=== PATIENT | male | born 1955 | race Caucasian/White ===

== ENCOUNTER → 2019-06-29 | Outpatient (CLI) | payer OTHER ==
--- NOTE | 2019-06-30 13:42 | EST ---
EXERCISE STRESS DATE OF SERVICE: 06/29/2019 AGE: 64 SEX: Male HT: 73 WT: 217 PROTOCOL: Nima STAGE: III DURATION OF EXERCISE: 7 minutes 45 seconds HEART RATE REST: 92 BLOOD PRESSURE REST: 149/92 MAXIMUM HEART RATE ACHIEVED: 134 MAXIMUM BLOOD PRESSURE: 207/86 85% MPHR: 133 100% MPHR: 156 METS: 9.3 INDICATIONS: Chest pain. CLINICAL INFORMATION: Patient was exercised for a total period of 7 minutes and 45 seconds. The peak heart rate of 134 was achieved. Maximum blood pressure of 207/86 mmHg was noted. Resting EKG shows normal sinus rhythm with normal CO interval and QRS duration and normal ST-T waves. No ST-segment depression suggestive of ischemia was noted. No dysrhythmias are noted. FINAL IMPRESSION: This exercise test is not suggestive of ischemia. Patient's exercise tolerance is normal. The patient did not complain of any chest pain during the test. MMODL / IJN: [id number] /
== END | disposition home or self-care (01) ==
LOC: RADNMMAIN 10:41
PROVIDERS: ATTEND Internal Medicine
DX: R07.9 Chest pain, unspecified (principal)
CPT/HCPCS: 93017

== ENCOUNTER → 2019-09-29 | Outpatient (CLI) | payer OTHER ==
--- NOTE | 2019-09-29 09:33 | XR ---
EXAMINATION TYPE: XR chest 2V DATE OF EXAM: 09/29/2019 COMPARISON: NONE TECHNIQUE: PA and lateral views submitted. HISTORY: Cough FINDINGS: The lungs are clear and there is no pneumothorax, pleural effusion, or focal pneumonia. Biapical pl eural thickening. No overt failure. Hypertrophic and degenerative change of the spine. IMPRESSION: 1. No acute process.
== END | disposition home or self-care (01) ==
LOC: RADXRMAIN 08:47
PROVIDERS: ATTEND Internal Medicine
DX: R05 Cough (principal)
CPT/HCPCS: 71046

== ENCOUNTER → 2020-11-28 | Outpatient (CLI) | payer MEDICARE, OTHER ==
--- NOTE | 2020-11-28 16:17 | XR ---
EXAMINATION TYPE: XR ribs RT DATE OF EXAM: 11/28/2020 COMPARISON: NONE HISTORY: Pain TECHNIQUE: 4 views submitted FINDINGS: There are multiple lateral chronic appearing rib deformity suggestive of remote trauma. No acute displaced rib fracture. IMPRESSION: Findings suggest remote trauma. Symptoms persist consider bone scan. MTDD
--- NOTE | 2020-11-28 16:19 | XR ---
EXAMINATION TYPE: XR chest 2V DATE OF EXAM: 11/28/2020 COMPARISON: 09/29/2019 TECHNIQUE: PA and lateral views submitted. HISTORY: Pain FINDINGS: The lungs are clear and there is no pneumothorax, pleural effusion, or focal pneumonia. Hyperinflati on of the lungs. Prominence the pulmonary artery suggests pulmonary arterial hypertension. The vague density along the lateral margin of the right mid chest which may be pleural-based. No overt failure. Heart size normal. Atherosclerotic change aorta. Hypertrophic and degenerative changes of the spine. IMPRESSION: 1. Poorly for COPD and pulmonary arterial hypertension. 2. Vague oval density along the lateral margin right chest most likely is pleural-based and stable fr om previous prior exam.
== END ==
LOC: RADXRMAIN 15:44
PROVIDERS: ATTEND Internal Medicine
DX: J44.9 Chronic obstructive pulmonary disease, unspecified (principal); I27.21 Secondary pulmonary arterial hypertension
CPT/HCPCS: 71046

== ENCOUNTER → 2020-11-29 | Outpatient (CLI) | payer MEDICARE, OTHER ==
--- NOTE | 2020-11-29 14:32 | XR ---
Left RIBS HISTORY: Left lower rib pain 3 views the left ribs Correlation to chest x-ray 11/28/2020 There is no evident displaced rib fracture. Bone mineralization is maintained. Thoracic spondylosis i s present. Aorta is dense. Left lung is stable. IMPRESSION: No evident fracture, bone scan could be performed for increased sensitivity as indicated.
== END | disposition home or self-care (01) ==
LOC: RADXRMAIN 09:27
PROVIDERS: ATTEND Internal Medicine
DX: R07.81 Pleurodynia (principal)

== ENCOUNTER 2021-08-21 09:52 | Day surgery (SDC) | payer MEDICARE, OTHER ==
[2021-08-14 15:20] VITALS: BMI 29.7
[~2021-08-21 09:52] MED LIST: LACTATED RINGERS 1,000 ML IV SCH
[2021-08-21 10:12] VITALS: TEMP 97.6
[2021-08-21] MEDS ORDERED: LIDOCAINE 1% (10MG/ML) FOR IV START INTRADERMA ONE (10:19)
[2021-08-21] MEDS ORDERED: PROPOFOL 10 MG/ML 20 ML VIAL IV ONE (11:03)
--- NOTE | 2021-08-21 11:07 | P.GSHP ---
History of Present Illness H&P Date: 08/21/21 Chief Complaint: Rectal bleeding 66-year-old male here today for colonoscopy. Patient admits to intermittent episodes of bright blood blood per rectum. Sometimes heavy. Some incomplete evacuation symptoms well. Had a cologuard test that was positive. No prior colonoscopy. No family history. Past Medical History Past Medical History: Cancer, Hypertension Additional Past Medical History / Comment(s): cologuard showed blood in stool, hx melanoma History of Any Multi-Drug Resistant Organisms: None Reported Past Surgical History: Tonsillectomy Additional Past Surgical History / Comment(s): melanoma removed from rt leg and back, jeffery cataracts Past Anesthesia/Blood Transfusion Reactions: No Reported Reaction Smoking Status: Current every day smoker - Past Family History Mother Family Medical History: Cancer Medications and Allergies Home Medications Medication Instructions Recorded Confirmed Type amLODIPine BESYLATE 10 mg PO DAILY 08/15/21 08/15/21 History lisinopriL 40 mg PO DAILY 08/15/21 08/15/21 History Allergies Allergy/AdvReac Type Severity Reaction Status Date / Time codeine Allergy Rash/Hives/upset Verified 08/21/21 10:05 stomach Surgical - Exam Vital Signs Temp Pulse Resp BP Pulse Ox 97.6 F 74 18 118/66 98 08/21/21 10:11 08/21/21 10:11 08/21/21 10:11 08/21/21 10:11 08/21/21 10:11 Physical exam: General: Well-developed, well-nourished HEENT: Normocephalic, sclerae nonicteric Abdomen: Nontender, nondistended Extremities: No edema Neuro: Alert and oriented Assessment and Plan (1) Rectal bleeding Narrative/Plan: Colonoscopy at this time Current Visit: Yes Status: Acute Code(s): K62.5 - HEMORRHAGE OF ANUS AND RECTUM SNOMED Code(s): 30482137
--- NOTE | 2021-08-21 11:33 | P.PCN ---
Date of Procedure: 08/21/21 Procedure(s) Performed: PREOPERATIVE DIAGNOSIS: Blood in stool POSTOPERATIVE DIAGNOSIS: Multiple colonic polyps PROCEDURE: Colonoscopy with snare polypectomy ANESTHESIA: MAC SURGEON: Hunter Gómez M.D. SPECIMENS: Multiple polyps ENDOSCOPIC PROCEDURE: The patient was placed on the endoscopy table in the left decubitus position. The Olympus colonoscope was inserted into the anus and passed under direct visualization to the base of the cecum. The appendiceal orifice was visualized. From that point the scope was slowly withdrawn inspecting all surfaces carefully. There were no neoplastic inflammatory or polypoid lesions throughout the cecum or ascending colon. At the hepatic flexure there were 2 small polyps both removed using the snare with cautery technique. Another polyp was seen in the transverse colon removed in a similar fashion. Descending colon was normal. In the sigmoid colon that were 4 polyps removed in a similar fashion. In the rectum there were 2 additional small polyps removed using the snare with cautery technique. Most of these polyps ranged in size from 3-8 mm. There was no visible diverticulosis. Digital rectal examination was normal. The patient was taken to the recovery room in stable condition per anesthesia guidelines. RECOMMENDATIONS: Await biopsy results. Short-term follow-up colonoscopy 2-3 years will be advised.
[2021-08-21 11:44] VITALS: RESP 16
[2021-08-21 12:11] VITALS: BP 130/73; PULSE 64
== END 2021-08-21 12:26 | disposition home or self-care (01) ==
LOC: ORWHC2ENDO 09:52
PROVIDERS: ATTEND Surgery
DX: D12.3 Benign neoplasm of transverse colon (principal); D12.5 Benign neoplasm of sigmoid colon; K62.5 Hemorrhage of anus and rectum; I10 Essential (primary) hypertension; Z85.820 Personal history of malignant melanoma of skin; Z98.890 Other specified postprocedural states; Z98.42 Cataract extraction status, left eye; Z98.41 Cataract extraction status, right eye; F17.210 Nicotine dependence, cigarettes, uncomplicated; Z80.9 Family history of malignant neoplasm, unspecified; Z79.899 Other long term (current) drug therapy; Z88.5 Allergy status to narcotic agent
CPT/HCPCS: 88305; 45385; J2704

== ENCOUNTER 2023-04-20 19:21 | Emergency (ER) | payer MEDICARE, OTHER ==
[2023-04-20] MEDS ORDERED: HYDROmorphone 1 MG/ML 1 ML SYRINGE IVP STA ×2 (19:54→21:18)
--- NOTE | 2023-04-20 19:58 | ED ---
General Adult HPI - General Chief complaint: Fall Stated complaint: left hip dislocaton Time Seen by Provider: 04/20/23 19:27 Source: patient Mode of arrival: EMS Limitations: physical limitation - History of Present Illness Initial comments: Patient presents to the ED by ambulance for evaluation status post trip and fall. Patient's girlfriend and her mother are at bedside with the patient. Patient states that he acidentally tripped and fell down about 5 steps landing on his left hip. Patient is complaining of severe left hip pain. Patient denie s any other injury or site of pain. Patient denies anticoagulant medication use. Patient denies head injury, LOC, headache, focal numbness/weakness/neuro deficit, neck/back/upper extremity pain, chest pain, dyspnea, palpitations, dizziness, abdominal pain, nausea or vomiting, or any other symptoms or complaints. Patient denies prior left hip surgery. Patient was given pain medication by EMS, which he reports has not helped at all. - Related Data Home Medications Medication Instructions Recorded Confirmed amLODIPine BESYLATE 10 mg PO DAILY 08/15/21 08/15/21 lisinopriL 40 mg PO DAILY 08/15/21 08/15/21 Allergies Allergy/AdvReac Type Severity Reaction Status Date / Time codeine Allergy Rash/Hives/upset Verified 08/21/21 10:05 stomach Review of Systems ROS Statement: Those systems with pertinent positive or pertinent negative responses have been documented in the HPI. ROS Other: All systems not noted in ROS Statement are negative. Past Medical History Past Medical History: Cancer, Hypertension Additional Past Medical History / Comment(s): cologuard showed blood in stool, hx melanoma History of Any Multi-Drug Resistant Organisms: None Reported Past Surgical History: Tonsillectomy Additional Past Surgical History / Comment(s): melanoma removed from rt leg and back, jeffery cataracts Past Anesthesia/Blood Transfusion Reactions: No Reported Reaction Past Psychological History: No Psychological Hx Reported Smoking Status: Current every day smoker - Past Family History Mother Family Medical History: Cancer General Exam Limitations: physical limitation General appearance: alert Head exam: Present: atraumatic, normocephalic Eye exam: Present: normal appearance ENT exam: Present: mucous membranes moist Neck exam: Present: normal inspection, other (Trachea is in midline). Absent: tenderness Respiratory exam: Present: normal lung sounds bilaterally. Absent: respiratory distress, wheezes, rales, rhonchi, stridor, chest wall tenderness Cardiovascular Exam: Present: regular rate, normal rhythm, normal heart sounds, other (Normal dorsalis pedis pulses bilaterally) GI/Abdominal exam: Present: soft. Absent: distended, tenderness, guarding Extremities exam: Present: other (Left lower extremity is shortened and externally rotated at rest; left hip tenderness; pelvis is stable). Absent: pedal edema Back exam: Present: normal inspection. Absent: tenderness Neurological exam: Present: alert, oriented X3. Absent: motor sensory deficit Psychiatric exam: Present: normal affect, normal mood Skin exam: Present: warm, dry, intact, normal color Course Vital Signs 04/20/23 21:56 Temperature 98.8 F Pulse Rate 70 Respiratory 20 Rate Blood Pressure 123/69 O2 Sat by Pulse 94 L Oximetry - Reevaluation(s) Reevaluation #1: 04/20/23 21:46 Case, H&P and x-ray findings were discussed with KAREN Hwang (orthopedic surgery). He states that his attending orthopedic surgeon, Dr. Harris, has revi ewed the patient's x-rays, and he feels that the patient should be transferred to another facility due to the complicated nature of his fracture repair. He has no further recommendations at this time. 04/20/23 22:53 Patient is aware of his test results/trait findings and my discussion with orthopedic surgery as above. Patient agrees with ambulance transfer to [facility] at this time for orthopedic surgery evaluation. 04/20/23 23:17 Case, H&P, test results and ED management thus far were discussed with both Dr. Sow (orthopedic surgery) and Dr. Watts (ED physician) at [facility]. Ambulance transfer to the [facility] ED was accepted by Dr. Watts. He has no further recommendations at this time. EKG Findings - EKG Comments: EKG Findings:: ED physician interpretation (interpreted by me): Normal sinus rhythm, ventricular rate of 61 bpm, no ectopy, normal KS and QRS intervals, normal QT interval, normal axis, no ST or T-wave abnormality Medical Decision Making - Medical Decision Making Was pt. sent in by a medical professional or institution (, [facility], [facility], urgent care, hospital, or jail...) When possible be specific @ No Did you speak to anyone other than the patient for history (EMS, parent, family, police, friend...)? What history was obtained from this source @ -No Did you review nursing and triage notes (agree or disagree)? Why? @ -I reviewed and agree with nursing and triage notes Were old charts reviewed (outside hosp., previous admission, EMS record, old EKG , old radiological studies, urgent care reports/EKG's, jail records)? Report findings @ -No old charts were reviewed Differential Diagnosis (chest pain, altered mental status, abdominal pain women, abdominal pain men, vaginal bleeding, weakness, fever, dyspnea, syncope, headache, dizziness, GI bleed, back pain, seizure, CVA, palpatations, mental health, musculoskeletal)? @ -Fall, fracture, sprain, strain, dislocation, contusion, hematoma EKG interpreted by me (3pts min.). @ -As above X-rays interpreted by me (1pt min.). @ -Chest x-ray was reviewed myself and shows no acute abnormality. I agree with the radiologist's interpretation as above. Left hip x-rays were reviewed myself and show an acute comminuted intratrochanteric hip fracture. I agree with the radiologist's interpretation as above. CT interpreted by me (1pt min.). @ -None done U/S interpreted by me (1pt. min.). @ -None done What testing was considered but not performed or refused? (CT, X-rays, U/S, labs)? Why? @ -None What meds were considered but not given or refused? Why? @ -None Did you discuss the management of the patient with other professionals (professionals i.e. , PA, [facility], lab, RT, psych nurse, mental health social worker, print line tailer, teacher, gunnery/ordnance officer, case consultant)? Give summary @ -As above Was smoking cessation discussed for >3mins.? @ -No Was critical care preformed (if so, how long)? @ -No Were there social determinants of health that impacted care today? How? (Homelessness, low income, unemployed, alcoholism, drug addiction, transportation, low edu. Level, literacy, decrease access to med. care, group home, rehab)? @ -No Was there de-escalation of care discussed even if they declined (Discuss DNR or withdrawal of care, Hospice)? DNR status @ -No What co-morbidities impacted this encounter? (DM, HTN, Smoking, COPD, CAD, Cancer, CVA, ARF, Chemo, Hep., AIDS, mental health diagnosis, sleep apnea, morbid obesity)? @ -None Was patient admitted / discharged? Hospital course, mention meds given and route, prescriptions, significant lab abnormalities, going to OR and other pertinent info. @ -X-rays demonstrated an acute comminuted intertrochanteric left hip fracture. Case was discussed with our orthopedic surgery team, but they feel that given t he complexity of the patient's fracture, the patient should be transferred to another facility. Patient's pain has been managed with IV analgesics in the ED. Ambulance transfer to [facility] ED was accepted by Dr. Watts. Patient agrees with plan for transfer. Patient's sodium level is mildly low, and his potassium level is mildly elevated. Patient has been treated with IV fluids in the ED. Undiagnosed new problem with uncertain prognosis? @ -No Drug Therapy requiring intensive monitoring for toxicity (Heparin, Nitro, Insulin, Cardizem)? @ -No Were any procedures done? @ -No Diagnosis/symptom? @ -Acute intertrochanteric left hip fracture Acute, or Chronic, or Acute on Chronic? @ -Acute Uncomplicated (without systemic symptoms) or Complicated (systemic symptoms)? @ -default Side effects of treatment? @ -No Exacerbation, Progression, or Severe Exacerbation? @ -No Poses a threat to life or bodily function? How? (Chest pain, [place], AL, pneumonia, PE, COPD, DKA, ARF, appy, cholecystitis, CVA, Diverticulitis, Homicidal, Suicidal, threat to staff... and all critical care pts) @ -No Diagnosis/symptom? @ -Hyponatremia Acute, or Chronic, or Acute on Chronic? @ -default Uncomplicated (without systemic symptoms) or Complicated (systemic symptoms)? @ -default Side effects of treatment? @ -none Exacerbation, Progression, or Severe Exacerbation] @ -no Poses a threat to life or bodily function? @ -no Diagnosis/symptom? @ -Hyperkalemia Acute, or Chronic, or Acute on Chronic? @ -default Uncomplicated (without systemic symptoms) or Complicated (systemic symptoms)? @ -default Side effects of treatment? @ -none Exacerbation, Progression, or Severe Exacerbation] @ -no Poses a threat to life or bodily function? @ -no - Lab Data Result diagrams: 04/20/23 21:30 04/20/23 21:30 Lab Results 04/20/23 04/20/23 04/20/23 Range/Units 21:30 21:30 21:30 WBC 9.7 (3.8-10.6) k/uL RBC 4.73 (4.30-5.90) m/uL Hgb 14.7 (13.0-17.5) gm/dL Hct 43.4 (39.0-53.0) % MCV 91.9 (80.0-100.0) fL MCH 31.0 (25.0-35.0) pg MCHC 33.8 (31.0-37.0) g/dL RDW 12.9 (11.5-15.5) % Plt Count 212 (150-450) k/uL MPV 8.2 Neutrophils % 48 % Lymphocytes % 36 % Monocytes % 8 % Eosinophils % 4 % Basophils % 1 % Neutrophils # 4.7 (1.3-7.7) k/uL Lymphocytes # 3.4 (1.0-4.8) k/uL Monocytes # 0.8 (0-1.0) k/uL Eosinophils # 0.4 (0-0.7) k/uL Basophils # 0.1 (0-0.2) k/uL PT 10.8 (9.0-12.0) sec INR 1.0 (<1.2) APTT 21.4 L (22.0-30.0) sec Sodium 127 L (137-145) mmol/L Potassium 5.5 H (3.5-5.1) mmol/L Chloride 98 (98-107) mmol/L Carbon Dioxide 19 L (22-30) mmol/L Anion Gap 10 mmol/L BUN 15 (9-20) mg/dL Creatinine 1.02 (0.66-1.25) mg/dL Est GFR (CKD-EPI)AfAm 87 (>60 ml/min/1.73 sqM) Est GFR (CKD-EPI)NonAf 75 (>60 ml/min/1.73 sqM) Glucose 101 H (74-99) mg/dL Calcium 8.9 (8.4-10.2) mg/dL Total Bilirubin 1.2 (0.2-1.3) mg/dL AST 72 H (17-59) U/L ALT 71 H (4-49) U/L Alkaline Phosphatase 51 (38-126) U/L Total Protein 7.5 (6.3-8.2) g/dL Albumin 4.3 (3.5-5.0) g/dL - Radiology Data Chest x-ray: No acute cardiopulmonary disease/process. Left hip x-rays: Acute comminuted intratrochanteric left proximal femur fracture. Disposition Clinical Impression: Fall, Closed left hip fracture, Hyperkalemia, Hyponatremia Disposition: OTHER INSTITUTION NOT DEFINED Condition: Stable Is patient prescribed a controlled substance at d/c from ED?: No Referrals: Jose Rooney MD [Primary Care Provider] - 1-2 days Time of Disposition: 23:18 - Out of Hospital Transfer - Req. Specs Out of Hospital Transfer - Requested Specifics: Other Emergency Center ([facility] ED)
--- NOTE | 2023-04-20 20:54 | XR ---
EXAMINATION TYPE: XR chest 1V portable DATE OF EXAM: 04/20/2023 8:47 PM COMPARISON: Chest radiographs from 11/28/2020 TECHNIQUE: XR chest 1V portable Portable AP radiograph of the chest. CLINICAL INDICATION:Male, 68 years old with history of chest pain; FINDINGS: Lungs/Pleura: There is no evidence of pleural effusion, focal consolidation, or pneumothorax. Chroni c senescent parenchymal change. Pulmonary vascularity: Unremarkable. Heart/mediastinum: Cardiomediastinal silhouette is unremarkable. Musculoskeletal: No acute osseous pathology. IMPRESSION: No acute cardiopulmonary disease/process.
--- NOTE | 2023-04-20 20:58 | XR ---
EXAMINATION TYPE: XR Hip Complete LT DATE OF EXAM: 04/20/2023 8:47 PM INDICATION: Patient age:Male; 68 years old; Reason for study: fall, hip injury; PHH. COMPARISON: None. TECHNIQUE: The left hip was examined in frontal and crosstable lateral projections. FINDINGS: Acute comminuted intratrochanteric left proximal femur fracture. Mild shortening demonstrat ed. No dislocation. There is lateral apex angulation. IMPRESSION: Acute comminuted intratrochanteric left proximal femur fracture.
[2023-04-20] MEDS ORDERED: HYDROmorphone 0.5 MG/0.5 ML SYRINGE IVP PRN (21:40)
[2023-04-20] MEDS ORDERED: NALOXONE 0.4 MG/ML 1 ML VIAL IV PRN (21:40)
[2023-04-20 21:54] LABS: Basophils # (A) 0.1 k/uL (0-0.2); Basophils % (A) 1 %; Eosinophils # (A) 0.4 k/uL (0-0.7); Eosinophils % (A) 4 %; HCT 43.4 % (39.0-53.0); HGB 14.7 gm/dL (13.0-17.5); Lymphocytes # (A) 3.4 k/uL (1.0-4.8); Lymphocytes % (A) 36 %; MCHC 33.8 g/dL (31.0-37.0); MCV 91.9 fL (80.0-100.0); Mean Platelet Volume 8.2; Monocytes # (A) 0.8 k/uL (0-1.0); Monocytes % (A) 8 %; Neutrophils # (A) 4.7 k/uL (1.3-7.7); Neutrophils % (A) 48 %; Platelet Count 212 k/uL (150-450); RBC 4.73 m/uL (4.30-5.90); RDW 12.9 % (11.5-15.5); WBC 9.7 k/uL (3.8-10.6)
[2023-04-20 22:03] LABS: Partial Thromboplastin Time 21.4 sec (22.0-30.0); Prothrombin Time 10.8 sec (9.0-12.0)
[2023-04-20] MEDS ORDERED: ONDANSETRON 4 MG/2 ML VIAL IVP STA (22:12)
[2023-04-20 22:18] LABS: ALT 71 U/L (4-49); AST 72 U/L (17-59); African American GFR (CKD) 87 (>60 ml/min/1.73 sqM); Albumin 4.3 g/dL (3.5-5.0); Alkaline Phosphatase 51 U/L (38-126); Anion Gap 10 mmol/L; Blood Urea Nitrogen 15 mg/dL (9-20); Calcium 8.9 mg/dL (8.4-10.2); Carbon Dioxide 19 mmol/L (22-30); Chloride 98 mmol/L (98-107); Glucose 101 mg/dL (74-99); Non-African American GFR(CKD) 75 (>60 ml/min/1.73 sqM); Sodium 127 mmol/L (137-145); Total Bilirubin 1.2 mg/dL (0.2-1.3); Total Protein 7.5 g/dL (6.3-8.2)
[2023-04-20 22:31] LABS: Potassium 5.5 mmol/L (3.5-5.1)
[2023-04-20 22:34] VITALS: PULSE 70; TEMP 98.8
[2023-04-20] MEDS ORDERED: SODIUM CHLORIDE 0.9% 500 ML 500 ML IV ONE (22:35)
[2023-04-20] MEDS: HYDROmorphone 1 MG/ML 1 ML SYRINGE IVP PRN ×2 (23:14→23:15)
[2023-04-20 23:17] VITALS: BP 124/73; RESP 19
[2023-04-21] MEDS ORDERED: HYDROmorphone 0.5 MG/0.5 ML SYRINGE IVP STA (00:06)
== END 2023-04-21 00:15 | disposition other institution (70) ==
LOC: EC 19:21
DX: S72.92XA Unspecified fracture of left femur, initial encounter for closed fracture (principal); E87.5 Hyperkalemia; E87.1 Hypo-osmolality and hyponatremia; I10 Essential (primary) hypertension; F17.200 Nicotine dependence, unspecified, uncomplicated; Z88.5 Allergy status to narcotic agent; Z79.899 Other long term (current) drug therapy; W10.9XXA Fall (on) (from) unspecified stairs and steps, initial encounter
CPT/HCPCS: 36415; 93005; 80053; 85025; 85610; 85730; 73502; 71045; 99285; 96374; 96375; 96376 ×3; 96361; J2405; J1170

== ENCOUNTER 2024-01-22 23:10 | Emergency (ER) | payer MEDICARE ==
[2024-01-22 23:39] VITALS: RESP 18
[2024-01-23] MEDS: MORPHINE SULFATE 4 MG/ML SYRINGE IM STA (00:22)
--- NOTE | 2024-01-23 01:32 | XR ---
EXAM: XR Pelvis, 1 or 2 Views CLINICAL HISTORY: ITS.REASON XR Reason: pain TECHNIQUE: Frontal view of the pelvis. COMPARISON: No relevant prior studies available. FINDINGS: Bones/joints: Osseous demineralization. Left hip ORIF. No acute fracture. No dislocation. Soft tissues: Unremarkable. IMPRESSION: No acute findings in the pelvis.
[2024-01-23] MEDS: HYDROmorphone 1 MG/ML 1 ML SYRINGE IM STA (01:34)
[2024-01-23] MEDS: DEXAMETHASONE SOD PHOSPHATE 10 MG/ML 1 ML VIAL IV STA (01:38)
[2024-01-23] MEDS: DEXAMETHASONE SOD PHOSPHATE 10 MG/ML 1 ML VIAL IM STA (01:41)
--- NOTE | 2024-01-23 02:14 | ED ---
Extremity Problem HPI - General Chief complaint: Extremity Problem,Nontraumatic Stated complaint: Right Leg Pain and Numbness Time Seen by Provider: 01/22/24 23:56 Source: patient Mode of arrival: ambulatory Limitations: no limitations - History of Present Illness Initial comments: 68-year-old male presenting with chief complaint of right hip pain. Symptoms started yesterday and worsened today. He does have radiation of pain down the leg. Does not stem from the lower back. He denies any injury or trauma. No loss of bowel or bladder control or saddle paresthesia. Pain is worse with weightbearing and range of motion. No fevers. - Related Data Home Medications Medication Instructions Recorded Confirmed amLODIPine BESYLATE 10 mg PO DAILY 08/15/21 08/15/21 lisinopriL 40 mg PO DAILY 08/15/21 08/15/21 Previous Rx's Medication Instructions Recorded Sulfamethox-Tmp 800-160Mg [Bactrim 1 each PO Q12HR #14 tab 06/15/23 DS 800-160 mg] HYDROcodone/APAP 7.5-325MG [[place] 1 tab PO Q6HR PRN 3 Days #12 tab 01/23/24 7.5-325] Allergies Allergy/AdvReac Type Severity Reaction Status Date / Time codeine Allergy Rash/Hives/upset Verified 01/22/24 23:32 stomach Review of Systems ROS Statement: Those systems with pertinent positive or pertinent negative responses have been documented in the HPI. ROS Other: All systems not noted in ROS Statement are negative. Past Medical History Past Medical History: Cancer, Hypertension Additional Past Medical History / Comment(s): cologuard showed blood in stool, hx melanoma History of Any Multi-Drug Resistant Organisms: None Reported Past Surgical History: Tonsillectomy Additional Past Surgical History / Comment(s): melanoma removed from rt leg and back, jeffery cataracts Past Anesthesia/Blood Transfusion Reactions: No Reported Reaction Past Psychological History: No Psychological Hx Reported Smoking Status: Current every day smoker Past Alcohol Use History: Occasional Past Drug Use History: Marijuana - Past Family History Mother Family Medical History: Cancer General Exam Limitations: no limitations General appearance: alert, in no apparent distress Head exam: Present: atraumatic, normocephalic Eye exam: Present: normal appearance, EOMI Neck exam: Present: normal inspection. Absent: meningismus Respiratory exam: Absent: respiratory distress Cardiovascular Exam: Present: regular rate Right Hip exam: Present: normal inspection, tenderness. Absent: full ROM Neurological exam: Present: alert, oriented X3 Psychiatric exam: Present: normal affect, normal mood Skin exam: Present: warm, dry Course Vital Signs 01/22/24 01/23/24 23:30 02:20 Temperature 98 F 98.2 F Pulse Rate 91 98 Respiratory 18 18 Rate Blood Pressure 128/81 O2 Sat by Pulse 98 99 Oximetry Medical Decision Making - Medical Decision Making Was pt. sent in by a medical professional or institution (, [facility], [employer], urgent care, hospital, or correction...) When possible be specific @ -No Did you speak to anyone other than the patient for history (EMS, parent, family, police, friend...)? What history was obtained from this source @ -No Did you review nursing and triage notes (agree or disagree)? Why? @ -I reviewed and agree with nursing and triage notes Were old charts reviewed (outside hosp., previous admission, EMS record, old EKG, old radiological studies, urgent care reports/EKG's, correction records)? Report findings @ -No old charts were reviewed Differential Diagnosis (chest pain, altered mental status, abdominal pain women, abdominal pain men, vaginal bleeding, weakness, fever, dyspnea, syncope, headache, dizziness, GI bleed, back pain, seizure, CVA, palpatations, mental health, musculoskeletal)? @ -Differential Musculoskeletal Muscular strain, contusion, ligament sprain, fracture, arthritis, septic arthritis, bursitis, cellulitis, muscle spasm, nerve compression, DVT, arterial occlusion, herpes zoster, electrolyte abnormality, tumor.... This is not meant to be in all inclusive list EKG interpreted by me (3pts min.). @ -As above X-rays interpreted by me (1pt min.). @ -X-ray shows no acute findings in the pelvis CT interpreted by me (1pt min.). @ -None done U/S interpreted by me (1pt. min.). @ -None done What testing was considered but not performed or refused? (CT, X-rays, U/S, labs)? Why? @ -None What meds were considered but not given or refused? Why? @ -None Did you discuss the management of the patient with other professionals (professionals i.e. Dr., PA, [employer]ER, lab, RT, psych nurse, social work specialist, reclamation engineer, teacher, chief investment officer, correctional case manager)? Give summary @ -No Was smoking cessation discussed for >3mins.? @ -No Was critical care preformed (if so, how long)? @ -No Were there social determinants of health that impacted care today? How? (Homelessness, low income, unemployed, alcoholism, drug addiction, transportation, low edu. Level, literacy, decrease access to med. care, [facility], rehab)? @ -No Was there de-escalation of care discussed even if they declined (Discuss DNR or withdrawal of care, Hospice)? DNR status @ -No What co-morbidities impacted this encounter? (DM, HTN, Smoking, COPD, CAD, Cancer, CVA, ARF, Chemo, Hep., AIDS, mental health diagnosis, sleep apnea, morbid obesity)? @ -None Was patient admitted / discharged? Hospital course, mention meds given and route, prescriptions, significant lab abnormalities, going to OR and other pertinent info. @ -68-year-old male presenting with chief complaint of right hip pain. History and physical exam are conducted. X-ray shows no acute findings in the pelvis. Patient reports improvement after pain medication. Discharged home. Follow-up with PCP. Report back to ER with any new or worsening symptoms. Discussed return parameters and answered all questions. Patient conveyed verbal understanding and agreed to the plan. I discussed this case in detail with my attending Dr. Renteria Undiagnosed new problem with uncertain prognosis? @ -No Drug Therapy requiring intensive monitoring for toxicity (Heparin, Nitro, Insulin, Cardizem)? @ -No Were any procedures done? @ -No Diagnosis/symptom? @ -Hip pain Acute, or Chronic, or Acute on Chronic? @ -Acute Uncomplicated (without systemic symptoms) or Complicated (systemic symptoms)? @ -Uncomplicated answer text Side effects of treatment? @ -No Exacerbation, Progression, or Severe Exacerbation? @ -No Poses a threat to life or bodily function? How? (Chest pain, [place], [place], pneumonia, PE, COPD, DKA, ARF, appy, cholecystitis, CVA, Diverticulitis, Homicidal, Suicidal, threat to staff... and all critical care pts) @ -No Disposition Clinical Impression: Hip pain Disposition: HOME SELF-CARE Condition: Good Instructions (If sedation given, give patient instructions): Hip Pain (ED), Hip Impingement (ED) Additional Instructions: Follow-up with your PCP. Report back to ER with any new or worsening symptoms. Prescriptions: HYDROcodone/APAP 7.5-325MG [[place] 7.5-325] 1 tab PO Q6HR PRN 3 Days #12 tab PRN Reason: Pain Is patient prescribed a controlled substance at d/c from ED?: Yes When asked, does pt state using other controlled substances?: No If prescribed controlled substance>3 days was MAPS reviewed?: Prescribed <3 Days If opioid is for acute pain is fill amount 7 days or less?: Yes Referrals: Jose Rooney MD [Primary Care Provider] - 1-2 days Time of Disposition: 02:14
[2024-01-23 02:42] VITALS: BP 128/81; PULSE 98; TEMP 98.2
== END 2024-01-23 02:20 | disposition home or self-care (01) ==
LOC: EC 23:10
DX: M25.551 Pain in right hip (principal); F17.200 Nicotine dependence, unspecified, uncomplicated; Z88.5 Allergy status to narcotic agent
CPT/HCPCS: 73502; 99283; 96372 ×3; J2270; J1100; J1170

== ENCOUNTER → 2024-01-27 | Outpatient (CLI) | payer MEDICARE ==
--- NOTE | 2024-01-27 12:36 | XR ---
EXAM TYPE: LUMBAR SPINE X RAY SERIES COMPARISON: NONE HISTORY: Pain TECHNIQUE: 4 views are submitted. FINDINGS: Alignment is anatomic. The pedicles are intact. The transverse processes are intact. There is diff use osteopenia with a severe compression fracture L1. Mild superior endplate compression fractures of L2 and L5. Multilevel hypertrophic spurring and facet arthropathy L4-5 and L5-S1. Mild degenerative disc disease L4-5. IMPRESSION: 1. Osteopenia with severe\complete compression fracture L1. Age indeterminant. 2. Mild superior endplate compression fracture L2 and L5 age indeterminate. A Document Only message has been documented for Jose Rooney MD in the [employer] [facility] ult system on 01/27/2024 12:33 PM, Message ID [id number].
== END | disposition home or self-care (01) ==
LOC: RADXRMAIN 12:09
PROVIDERS: ATTEND Internal Medicine
DX: M48.56XA Collapsed vertebra, not elsewhere classified, lumbar region, initial encounter for fracture (principal); M85.88 Other specified disorders of bone density and structure, other site
CPT/HCPCS: 72110

== ENCOUNTER → 2024-02-11 | Outpatient (CLI) | payer MEDICARE ==
--- NOTE | 2024-02-11 21:39 | BD ---
EXAMINATION TYPE: Axial Bone Density DATE OF EXAM: 02/11/2024 CLINICAL HISTORY: 68 years old Male. ICD-10 CODE: M85.88 OTH DISRD OF BONE DENSITY AND STRUCTURE, OT Height: 73 Weight: 155.7 FRAX RISK QUESTIONS: Alcohol (3 or more units per day): no Family History (Parent hip fracture): no Glucocorticoids (More than 3mos): no (Ex: prednisone, prednisolone, methylprednisolone, dexamethasone, and hydrocortisone). History of Fracture in Adulthood: yes Secondary Osteoporosis: 1. Type 1 Diabetes: no 2. Hyperthyroidism: no 4. Malnutrition: no 5. Chronic liver disease: no Rheumatoid Arthritis: no Current Tobacco Use: yes RISK FACTORS HISTORY OF: Hip Fracture (Right/Left): yes/left When: Spine Fracture: yes l-1,l-2,l-5 When: 2023 ( see report january) Surgery to Spine/Hip(right/left)/Wrist (right/left): left hip/04-13 EXAM MEASUREMENTS: Bone mineral densitometry was performed using the [employer] System. Bone mineral density about the R hip (g/cm2): 0.767 T Score values are as follows: -----R Neck: -2.5 -----R Total: -1.9 Z Score values are as follows: -----R Neck: -1.6 -----R Total: -1.5 Bone mineral density : baseline Bone mineral density about the L Wrist (g/cm2): 0.598 T Score values are as follows: -----Dist. R+U: -2.5 -----Prox. R+U: -1.6 -----Radius total: -2.3 Z Score values are as follows: -----Dist. R+U: -1.8 -----Prox. R+U: -0.8 -----Radius total: -1.5 Bone mineral density : baseline FRAX%s: The graph provided illustrates a 16.5% chance for a major osteoporotic fx and a 8.6% chance f or the hips probability for fx in 10 years time. IMPRESSION: Osteopenia (T Score between -2.5 and -1). There is slightly increased risk of fracture and the patient may be considered for treatment. Re-Screen 2-5 years. NOTE: T-SCORE=SD OF THE YOUNG ADULT MEAN.
== END | disposition home or self-care (01) ==
LOC: RADBDWWP 13:45
PROVIDERS: ATTEND Internal Medicine
DX: M85.89 Other specified disorders of bone density and structure, multiple sites (principal); M81.0 Age-related osteoporosis without current pathological fracture
CPT/HCPCS: 77080